=== PATIENT | male | born 1995 | race Caucasian/White ===

== ENCOUNTER 2024-07-23 13:42 | Emergency (ER) | payer SELFPAY ==
[2024-07-23 13:50] VITALS: BP 135/83; PULSE 56; RESP 16; TEMP 37; O2SAT 100
--- NOTE | 2024-07-23 14:15 | ED_ITS ---
HPI - Skin/Abscess/Foreign Bdy General Chief complaint: Skin/Abscess/Foreign Body Stated complaint: INSECT BITE Time Seen by Provider: 07/23/24 14:10 Source: patient, RN notes reviewed and old records reviewed Mode of arrival: ambulatory Limitations: no limitations History of Present Illness HPI narrative: 28 year old male presents to [facility] care with complaints of rash to bilateral arms which is spreading for the past 4-5 days.. Patient states that he thought he had insect bites initially but it is spreading. Patient had been on some property clearing brush and he does work in the [employer]. Patient has been cleansing with soap and hot water. states areas are itchy. MD complaint: rash Onset (ago): day(s) (4-5 days) Severity: moderate Treatments prior to arrival: other (soap and water) Related Data Allergies Allergy/AdvReac Type Severity Reaction Status Date / Time hydrocodone Allergy Mild Rash Verified 07/23/24 13:57 Review of Systems Review of Systems: CONSTITUTIONAL: Denies fever, chills, or sweats. CARDIOVASCULAR: Denies chest pain, palpitations, or edema. RESPIRATORY: Denies cough or dyspnea. SKIN: Reports red scattered itchy rash to bilateral forearm MUSCULOSKELETAL: Denies joint pain or myalgia. NEUROLOGIC: Denies headache, numbness, or weakness. All systems reviewed & are unremarkable except as noted in HPI and below PMFSH Social History Social History (Updated 07/25/24 @ 10:49 by Kimberly New NP) Smoking status: Never smoker Alcohol intake: current Alcohol use details: social Substance use type: does not use Gender identity (if verbalized by the patient): Male Comments At time of signature, agree with nursing past medical, surgical, social and family history. There is no relevant family history pertinent to the presenting complaint Exam Narrative: GENERAL: Well-appearing, well-nourished, and in no acute distress. HEAD: Normocephalic, atraumatic. EYES: PERRLA, conjunctivae clear, and EOMI. ENT: Mucous membranes moist. Oropharynx without edema, erythema or lesions. NECK: Supple. No lymphadenopathy CHEST: Clear to auscultation. No respiratory distress.SAO2 100% on room air HEART: Regular rate and rhythm. SKIN: Warm, dry.? Patches of erythema with red raised rash to bilateral arms which is itchy NEURO:? Alert and oriented x3. PSYCH: Normal mood and affect Course Course Emergency Course: Patient is aware of diagnosis, understands and agrees to treatment plan.? Anticipatory guidance given.? Patient agrees to follow-up as directed and is aware of reasons to seek care at the emergency department. Portions of this record may have been created with voice recognition software Level of Care: Express Care Visit Vital Signs Vital signs: Vital Signs Temperature 37.0 C 07/23/24 13:50 Pulse Rate 56 L 07/23/24 13:50 Respiratory Rate 16 07/23/24 13:50 Blood Pressure 135/83 07/23/24 13:50 Pulse Oximetry 100 07/23/24 13:50 Temperature 37.0 C 07/23/24 13:50 Pulse Rate 56 L 07/23/24 13:50 Respiratory Rate 16 07/23/24 13:50 Blood Pressure 135/83 07/23/24 13:50 Pulse Oximetry 100 07/23/24 13:50 Reviewed MDM - Skin/Abscess/Foreign Bdy MDM Narrative Medical decision making narrative: Does not appear at this time to be erythema multiforme, bullous, SJS, TEN; no evidence at this time to suggest RMSF, endocarditis or Lyme disease; patient looks well, nontoxic and is tolerating oral intake; no neurologic signs or symptoms; no headache, photophobia or neck pain; afebrile; appropriate for initial outpatient treatment; discussed the importance of follow-up, patient ag siomara; question, viral exanthema, contact dermatitis, allergic dermatitis, eczema, urticaria.. No soft palate or uvula edema, no tongue, lip edema or other mucosal involvement, no respiratory compromise, no stridor, no wheezing, no wheezing, no history of syncope, no hypotension, no nausea, vomiting, or diarrhea.? Instructed patient to go to nearest ER immediately for any worsening symptoms including but not limited to: fever, spreading rash, pain, sore throat, headache, dizziness, chest pain, trouble breathing, or any symptoms concerning to the patient. Differential Diagnosis Differential diagnosis: Likely cellulitis, eczema, contact dermatitis and other (poison shirley) Medical Records Attestation: I reviewed the patient's medical records. Critical Care Time Critical Care Time Critical Care Time: No Discharge Plan Discharge Clinical Impression: Contact dermatitis Qualifiers: Contact dermatitis type: allergic Contact dermatitis trigger: non-food plants Qualified Code(s): L23.7 - Allergic contact dermatitis due to plants, except food Patient Disposition: Home Condition: Stable Instructions: Contact Dermatitis (ED), Poison Shirley (ED) Additional Instructions: Apply apply triamcinolone ointment to rash twice daily never apply this to the face watch for increasing infection--redness, swelling, drainage Pepcid 20 mg daily for 10 days Zyrtec daily for 10 days follow up with PCP in 7-10 days for a wound check recheck if develop fever, chills, increasing symptom Go to the ER if your symptoms become worse of if ANY new symptoms develop prednisone taper take as prescribed take with food no hot showers may take Benadryl at bedtime for itching If your symptoms persist, change or worsen significantly before you can contact your personal physician then please, without delay, go to the emergency department for further evaluation. Follow-up with PCP in 7-10 days or sooner if needed Follow up with PCP soon in regards to your blood pressure which is elevated above threshold for referral. Blood pressure above 120/80 may indicate pre- hypertension. 135/83 Patient Language: [place] Prescriptions: New triamcinolone acetonide 0.1 % ointment 1 applic topical BID Qty: 80 0RF Rx Instructions: never apply this ointment to the face famotidine [Pepcid] 20 mg tablet 20 mg PO DAILY Qty: 10 0RF prednisone 10 mg tablet 10 mg PO DIRECTED Qty: 21 0RF Rx Instructions: see taper instructions 6 tabs day 1, 5 tabs day 2, 4 tabs day 3, 3 tabs day 4, 2 tabs day 5, 1 tab day 6 taken the morning and take with food Follow-up/Referrals: PHYSICIAN,HEAD OF MEASUREMENT & INSIGHTS [Primary Care Provider] - Time of Disposition: 14:21 Quality [place] Coma Scale Eyes: Open Verbal: Oriented and Alert Motor: Follows Commands [place] Coma Total Score: 15
== END 2024-07-23 14:21 | disposition home or self-care (01) ==
PROVIDERS: Emergency Provider Registered Nurse
DX: L23.7 Allergic contact dermatitis due to plants, except food (principal)
CPT/HCPCS: 99213; G0463